=== PATIENT | male | born 1965 | race Caucasian/White ===

== ENCOUNTER → 2016-09-06 | Outpatient (CLI) | payer BC ==
[~2016-09-06] MED LIST: SIMV5TAB2 PO
[2016-09-06 11:18] LABS: BASO % 0.4 %; BASO ABS # 0.02 K/uL (0-0.2); COMPLETE YES; EOS % 3.5 %; HEMATOCRIT 40.2 % (42-52); IG% 0.2 %; LYMPH % 30.9 %; LYMPH ABS # 1.49 K/uL (1.2-3.4); MEAN CELL VOLUME 86.8 fL (80-100); MEAN CORPUSCULAR HEMOGLOBIN 28.1 pg (25-34); MEAN CORPUSCULAR HGB CONC 32.3 g/dl (32-36); MEAN PLATELET VOLUME 11.6 fL (7.4-10.4); MONO % 7.3 %; NEUT % 57.7 %; PLATELET COUNT 251 K/uL (130-400); RED BLOOD COUNT 4.63 M/uL (4.7-6.1); WHITE BLOOD COUNT 4.82 K/uL (4.8-10.8)
[2016-09-06 11:37] LABS: ALT/SGPT 30 U/L (12-78); BLOOD UREA NITROGEN 20 mg/dl (7-18); BUN/CREATININE RATIO 14.4 (10-20); CALCIUM 9.3 mg/dl (8.5-10.1); CARBON DIOXIDE 29 mmol/L (21-32); CHLORIDE 106 mmol/L (98-107); CHOLESTEROL 184 mg/dl (0-200); GLUCOSE 100 mg/dl (70-99); POTASSIUM 4.1 mmol/L (3.5-5.1); SODIUM 141 mmol/L (136-145); TRIGLYCERIDES 185 mg/dl (0-150); VERY LOW DENSITY LIPOPROT CALC 37 mg/dl
[2016-09-06 11:41] LABS: ALB/GLOB RATIO 1.2 (0.9-2); ALKALINE PHOSPHATASE 32 U/L (45-117); AST/SGOT 21 U/L (15-37); CHOLESTEROL/HDL RATIO 3.6; HDL CHOLESTEROL 51 mg/dl; LDL CHOLESTEROL CALCULATED 96 mg/dl
== END | disposition home or self-care (01) ==
LOC: C.LABBC 07:39
PROVIDERS: ATTEND Physician Assistant
DX: E78.00 Pure hypercholesterolemia, unspecified (principal); Z11.59 Encounter for screening for other viral diseases; D64.9 Anemia, unspecified